=== PATIENT | male | born 1965 | race Caucasian/White ===

== ENCOUNTER 2017-09-07 06:51 | Emergency (ER) | payer OTHER ==
[~2017-09-07] VITALS: Ht 165.1 cm; Wt 83.9 kg
--- NOTE | 2017-09-07 07:00 | NUR ---
Dr. Russell at bedside for MSE.
--- NOTE | 2017-09-07 07:02 | NUR ---
Patient came to ER c/o coughing for 3 weeks, fever off and on, body aches.
[2017-09-07] MEDS ORDERED: predniSONE 10 MG TABLET ONE (07:08)
[2017-09-07] MEDS ORDERED: predniSONE 50 MG TABLET ONE (07:08)
--- NOTE | 2017-09-07 07:10 | NUR ---
[facility] report passed to Bo GARCIA.
[2017-09-07] MEDS ORDERED: ALBUTEROL SULFATE 2.5 MG/3 ML NEBU ONE (07:11)
[2017-09-07] MEDS ORDERED: IPRATROPIUM BROMIDE 0.5 MG/2.5 ML NEBU ONE (07:11)
[2017-09-07] MEDS ORDERED: IPRATROPIUM BROMIDE 0.5 MG/2.5 ML NEBU NEB ONE (07:15)
[2017-09-07] MEDS ORDERED: predniSONE 10 MG TABLET PO ONE (07:15)
[2017-09-07] MEDS ORDERED: ALBUTEROL SULFATE 2.5 MG/3 ML NEBU NEB ONE (07:15)
--- NOTE | 2017-09-07 07:43 | NUR ---
pt was d/c'd to home. d/c instructions given to the pt.
[2017-09-07 07:44] VITALS: BP 132/81
== END 2017-09-07 07:45 | disposition home or self-care (01) ==
LOC: ER 06:58
DX: J20.9 Acute bronchitis, unspecified (principal); E11.9 Type 2 diabetes mellitus without complications; J45.909 Unspecified asthma, uncomplicated
CPT/HCPCS: A4663; J3590; J7512